=== PATIENT | female | born 2000 ===

== ENCOUNTER 2020-03-08 19:57 | Emergency (ER) | payer SELFPAY ==
[2020-03-08 22:33] VITALS: BP 118/67
[2020-03-09 01:25] LABS: HCG Qualitative,Urine Negative (Negative)
--- NOTE | 2020-03-09 04:24 | Emergency Department Report ---
<MARY RIVERA - Last Filed: 03/09/20 04:20> ED General Adult HPI - General Chief complaint: Urogenital-Female Stated complaint: BILATERAL BREAST PAIN Time Seen by Provider: 03/08/20 22:01 Source: patient Mode of arrival: Ambulatory Limitations: Language Barrier - History of Present Illness Initial comments: 19-year-old obese female that emerge department complaining of having a period for the last 6 months and having some chest discomfort and also breast pain reports no fever, chills, sweats no nausea, no vomiting, no no diarrhea no vaginal bleeding no vaginal discharge no dysuria. - Related Data Previous Rx's Medication Instructions Recorded Last Taken Type Ibuprofen [Motrin 800 MG tab] 800 mg PO Q8HR PRN #30 tablet 03/09/20 Unknown Rx Allergies Allergy/AdvReac Type Severity Reaction Status Date / Time Fish Containing Products Allergy Rash Verified 03/08/20 20:00 shellfish derived Allergy Rash Verified 03/08/20 20:00 ED Review of Systems Comment: All other systems reviewed and negative ED Past Medical Hx - Past Medical History Previous Medical History?: No - Surgical History Past Surgical History?: No - Social History Smoking Status: Never Smoker Substance Use Type: Alcohol - Medications Home Medications: Home Medications Medication Instructions Recorded Confirmed Last Taken Type Ibuprofen [Motrin 800 MG tab] 800 mg PO Q8HR PRN #30 tablet 03/09/20 Unknown Rx ED Physical Exam - General Limitations: Language Barrier General appearance: alert, in no apparent distress - Head Head exam: Present: atraumatic, normocephalic, normal inspection - Eye Eye exam: Present: normal appearance, PERRL. Absent: scleral icterus, conjunctival injection, periorbital swelling Pupils: Present: normal accommodation, unequal - ENT ENT exam: Present: normal exam, normal orophraynx, mucous membranes moist, TM's normal bilaterally, other - Neck Neck exam: Present: normal inspection, full ROM. Absent: tenderness, meningismus, lymphadenopathy - Respiratory Respiratory exam: Present: normal lung sounds bilaterally. Absent: respiratory distress, wheezes, rales, rhonchi, chest wall tenderness, accessory muscle use, decreased breath sounds - Cardiovascular Cardiovascular Exam: Present: regular rate, normal rhythm. Absent: bradycardia, tachycardia, irregular rhythm, normal heart sounds, systolic murmur, diastolic murmur, rubs, gallop - GI/Abdominal GI/Abdominal exam: Present: soft, normal bowel sounds. Absent: distended, tenderness, guarding, hyperactive bowel sounds, hypoactive bowel sounds, organomegaly, mass - Extremities Exam Extremities exam: Present: normal inspection - Back Exam Back exam: Present: normal inspection - Neurological Exam Neurological exam: Present: alert, oriented X3 - Psychiatric Psychiatric exam: Present: normal affect, normal mood - Skin Skin exam: Present: warm, dry, intact, normal color. Absent: rash ED Disposition Clinical Impression: Dysmenorrhea, Chest wall pain Disposition: - TO HOME OR SELFCARE Condition: Stable Instructions: Costochondritis (ED), Dysmenorrhea (ED) Prescriptions: Ibuprofen [Motrin 800 MG tab] 800 mg PO Q8HR PRN #30 tablet PRN Reason: pain Referrals: LIZETH ZUNIGA MD [Staff Physician] - 3-5 Days Forms: Work/School Release Form(ED) <EMILY KEVIN - Last Filed: 03/09/20 05:15> ED Review of Systems ROS: Stated complaint: BILATERAL BREAST PAIN Other details as noted in HPI ED Course Vital Signs 03/08/20 03/08/20 20:01 22:32 Temperature 98.5 F 98.2 F Pulse Rate 116 H 73 Respiratory 20 14 Rate Blood Pressure 135/81 Blood Pressure 118/67 [Right] O2 Sat by Pulse 98 100 Oximetry ED Medical Decision Making - Radiology Data Radiology results: report reviewed, image reviewed Findings Reporting MD: Gladys Xavier Dictation Time: March 09, 2020 03:52 Tr anscriptionist: Not available Spotlight Operator Date: CHEST 2 VIEWS, 03/09/2020 3:51 AM INDICATION: Chest pain COMPARISON: None FINDINGS: Support devices: None. Heart: The cardiac silhouette is normal in size. Lungs/pleura: The lungs are well expanded and appear clear of focal airspace disease or large pleural effusion. Additional findings: No significant acute abnormality. IMPRESSION: 1. No evidence of acute cardiopulmonary process. Signer Name: Gladys Xavier MD Signed: 03/09/2020 3:52 AM Workstation Name: [id number] - Medical Decision Making cxr normal , no infiltrates no opacities, lungs sounds clear throughout , plan: nsaids prn , moist heat, decrease cafine intake, follow up with primary car doctor in 2-3 days. Critical care attestation.: If time is entered above; I have spent that time in minutes in the direct care of this critically ill patient, excluding procedure time. ED Disposition Is pt being admited?: No Does the pt Need Aspirin: No
--- NOTE | 2020-03-09 04:57 | XRay Report ---
CHEST 2 VIEWS, 03/09/2020 3:51 AM INDICATION: Chest pain COMPARISON: None FINDINGS: Support devices: None. Heart: The cardiac silhouette is normal in size. Lungs/pleura: The lungs are well expanded and appear clear of focal airspace disease or large pleural effusion. Additional findings: No significant acute abnormality. IMPRESSION: 1. No evidence of acute cardiopulmonary process. Signer Name: Gladys Xavier MD Signed: 03/09/2020 4:52 AM Workstation Name: [id number]
== END 2020-03-09 05:23 | disposition home or self-care (01) ==
LOC: ED 19:57
DX: R07.89 Other chest pain (principal); N94.6 Dysmenorrhea, unspecified; Z91.013 Allergy to seafood
CPT/HCPCS: 71046; 81025; 99283